=== PATIENT | female | born 1935 | race Caucasian/White ===

== ENCOUNTER 2016-08-10 10:24 | Outpatient (RCR) ==
[2016-01-15 21:51] VITALS: BMI 30.6
--- NOTE | 2016-08-10 11:20 | RS.OPPTDN ---
Subjective Date of Note: 08/10/16 Visit #: 7 Date of Evaluation: 07/22/16 Payer Source: MEDICARE Treatment Diagnosis: Left knee arthroplasty status post Current Subjective/complaints:: Patient says she is trying to work on stairs at home to build L knee strength. Reports colder weather is making her ache and stiff, so she tries to work on HEP as often as possible so that she will be more mobile and strong for Spring. Pain Assessment - Pain Description Pain Location: Left shoulder and lower back Pain Description: throbbing/stiffness Current Pain Intensity: medial L knee Interventions - Exercise/Activities/Manual Therapy Exercises/Activities: Began on stationary bike x 8 mins forward and retro. Patient needed assistance on and off and with altering position of seating often. Performed slowly the first minute due to stiffness in the L knee. Mat exercise QS, heel slides, pillow squeezes, SAQ 3#, DF, hip abd in hooklying performed seperately with (progressed to) green tband, SLR. Alternate hip flexion with 3# to each ankle. Sitting shoulder shrugs, progressed to green theraband scap retraction. Patient stands for hip abd, marching with 1 1/2# ea x 10. Side stepping, foam for heel raises, marching, and weight shift side to side slowly. Rest breaks in between standing and foam activity. Total minutes of Exercise: 45 Manual Therapy: Na HOME EXERCISE PROGRAM: Hooklying hip abd seperately with red tband, QS, and pillow squeezes - Charges Total Direct Minutes: 45 Total Treatment Time: 45 Procedures billed for this date of service:: ex3 Assessment: Patient progressing well with all strengthening for the LE, trunk, and postural. She is maintaining balance with more challenging exercises such as on foam and step board. She is very compliant and maintains positive and motivating attitude to improve. Some difficulty noted with transitioning onto the bike and maneuvering at times due to limited L knee flexion. Patient Education: Education of diagnosis, Body/Joint mechanics, Home Exercise Program, Home Safety, Activity Modification, Education of Plan of Care Patient demonstrates compliance with HEP?: Yes Short Term Goals Goal #1: Patient will present with 4-/5 bilateral hip strength Goal to be met by: 08/06/16 (25%) Progress towards Goal:: Progressing Goal #2: Patient will report compliance with beginning HEP Goal to be met by: 08/06/16 Progress towards Goal:: Met Goal #3: Patient will report 25% increase in confidence with daily mobility. Goal to be met by: 08/06/16 (50%) Progress towards Goal:: Progressing Nursing Home Goals Goal #1: Patient independent in HEP to maintain her strength. Goal to be met by: 09/03/16 Progress towards goal: Progressing Goal #2: Tinetti Balance Score 20/28 Goal to be met by: 09/03/16 Goal #3: Decrease mobility deficit to 20 - 39% Goal to be met by: 09/03/16 Goal #4: Patient will present 50% improvement in gait confidence. Goal to be met by: 09/03/16 Progress towards goal: Progressing Plan PLAN OF CARE EXPIRES ON:: 09/03/16 ORDER # VISITS AND/OR THROUGH DATE: 09/03/2015 PLAN: Progress Exercises
--- NOTE | 2016-08-12 10:04 | RS.CXNS ---
Date of scheduled appointment: 08/12/16 Type: Cancel Reason for Cancel/NS: inclement weather
--- NOTE | 2016-08-17 11:24 | RS.CXNS ---
Date of scheduled appointment: 08/17/16 Type: Schedule Mistake Reason for Cancel/NS: Called patient and she reported being sick and in bed. Will call us to reschedule.
--- NOTE | 2016-08-19 11:16 | RS.CXNS ---
Date of scheduled appointment: 08/19/16 Type: Cancel Reason for Cancel/NS: Patient calls to cancel as she is doing well and is returning to her chair aerobics/social exercising groups. Will plan to discharge.
--- NOTE | 2016-08-31 11:39 | RS.OPPTDC ---
Date of Discharge: 08/31/16 Date of Evaluation: 07/22/16 Number of Visits: 7 Treatment Diagnosis: Gait abnormality Current Complaints/Gains: Patient reports improved balance and strength in LE' s. She is performing HEP at home often. She also performs chair aerobics 3-4 times a week. Pain Assessment - Pain Description Pain Location: Left shoulder and lower back Pain Description: throbbing/stiffness Current Pain Intensity: medial L knee Functional Outcome Measure Tinetti: 16 (=43% impairment) - G Codes & Severity Modifier G Codes & Modifier: Mobility D/C CK. Mobility goal CJ Source of G Code score: Tinetti assessment (determined by observation at last attended date of service.) Gait - Gait Pattern Gait Comments: Patient ambulates with straight cane, independently. She demonstrates minimal deviation from a straight path. Interventions - Exercise/Activities/Manual Therapy Exercises/Activities: NA Manual Therapy: Na HOME EXERCISE PROGRAM: Hooklying hip abd seperately with red tband, QS, and pillow squeezes - Objective Findings Observations,measurements,etc.: patient able to perform all LE exercises in standing and mat for strengtheing and balance while maintaining balance. She continues to ambulate with a straight cane. - Charges Total Direct Minutes: NA Total Treatment Time: NA Procedures billed for this date of service:: NA Assessment Assessment: Patient reports improved strength and balance with therapy. She is active with a chair aerobics class and feels she can continue her HEP from therapy on her own. Short Term Goals Goal #1: Patient will present with 4-/5 bilateral hip strength Goal to be met by: 08/06/16 (25%) Progress towards Goal:: Partially Met Goal #2: Patient will report compliance with beginning HEP Goal to be met by: 08/06/16 Progress towards Goal:: Met Goal #3: Patient will report 25% increase in confidence with daily mobility. Goal to be met by: 08/06/16 (50%) Progress towards Goal:: Met [facility] Goals Goal #1: Patient independent in HEP to maintain her strength. Goal to be met by: 09/03/16 Progress towards goal: Met Goal #2: Tinetti Balance Score 20 Goal to be met by: 09/03/16 Progress towards goal: Not Met Goal #3: Decrease mobility deficit to 20 - 39% Goal to be met by: 09/03/16 Progress towards goal: Not Met Goal #4: Patient will present 50% improvement in gait confidence. Goal to be met by: 09/03/16 Progress towards goal: Met Plan Reason for Discharge:: Self-Discharge
== END 2016-09-07 ==
PROVIDERS: ATTEND Internal Medicine
DX: R26.89 Other abnormalities of gait and mobility (principal); M15.9 Polyosteoarthritis, unspecified; Z96.653 Presence of artificial knee joint, bilateral

== ENCOUNTER 2017-03-31 11:42 | Inpatient (IN) ==
[2017-03-31] MEDS ORDERED: TYLENOL PO PRN (12:17)
[2017-03-31] MEDS ORDERED: MORPHINE 4 MG/ML SYRINGE IVP PRN (12:17)
[2017-03-31] MEDS ORDERED: NITROSTAT SL PRN (12:17)
[2017-03-31] MEDS ORDERED: ATROPINE SULFATE PFS IVP PRN (12:17)
[2017-03-31] MEDS ORDERED: VISTARIL INJ IM PRN (12:17)
[2017-03-31 12:24] VITALS: BMI 31.1
[2017-03-31] MEDS ORDERED: NORCO 10-325 PO PRN ×2 (12:24→12:50)
[2017-03-31 13:10] LABS: BASOPHILS % (AUTO) 0.6 % (0.0-3.0); EOSINOPHILS # (AUTO) 0.2 K/ul (0.0-0.7); EOSINOPHILS % (AUTO) 4.2 % (0.0-7.0); HEMATOCRIT 32.1 % (37.0-47.0); HEMOGLOBIN 11.4 g/dl (12.0-16.0); IMMATURE GRANULOCYTE % (AUTO) 0.2 % (0.0-5.0); LYMPHOCYTES # (AUTO) 0.7 K/uL (0.60-3.4); LYMPHOCYTES % (AUTO) 14.7 (10.0-50.0); MEAN CORPUSCULAR HEMOGLOBIN 32.8 pg (27.0-31.0); MEAN CORPUSCULAR HGB CONC 35.5 (31.8-35.4); MEAN CORPUSCULAR VOLUME 92.2 fl (81.0-99.0); MONOCYTES # (AUTO) 0.4 K/uL (0.4-2.0); MONOCYTES % (AUTO) 7.4 (0-10); NEUTROPHILS # (AUTO) 3.7 K/ul (2.0-6.9); NEUTROPHILS % (AUTO) 72.9; PLATELET COUNT 247 10^3/uL (140-440); RED BLOOD COUNT 3.48 10^6/ul (4.20-5.40); WHITE BLOOD COUNT 5.02 K/ul (4.6-10.2)
[2017-03-31] MEDS: ROCEPHIN 1 GM in SODIUM CHLORIDE 50 ML IV SCH (13:28)
[2017-03-31] MEDS: DEXTROSE 5%-1/2NS IV SOLUTION 1,000 ML IV SCH (13:28)
[2017-03-31] MEDS: TUSSIONEX PO SCH ×2 (13:28→20:18)
[2017-03-31] MEDS: SOLU-CORTEF 250 MG IVP SCH ×2 (13:29→20:18)
[2017-03-31 13:49] LABS: ALBUMIN 3.6 g/dL (3.4-5.0); ALBUMIN/GLOBULIN RATIO 1.24; ANION GAP 12.6; BILIRUBIN,TOTAL 0.55 mg/dL (0.00-1.20); BUN/CREATININE RATIO 11.26; CALCIUM 9.4 mg/dL (8.2-10.2); CREATININE 0.71 mg/dL (0.60-1.30); POTASSIUM 3.6 mmol/L (3.5-5.10); TOTAL PROTEIN 6.5 g/dL (5.8-8.1); TROPONIN I 0.017 ng/ml (0.0000-0.4000)
[2017-03-31] MEDS ORDERED: ALBUTEROL 0.083% NEB NEB SCH (14:00)
[2017-03-31 15:43] LABS: BILIRUBIN,URINE Negative (NEGATIVE); KETONES,URINE Negative (NEGATIVE); LEUKOCYTE ESTERASE ,URINE Negative (NEGATIVE); NITRITE,URINE Negative (NEGATIVE); PROTEIN,URINE Negative (NEGATIVE); URINE, BLOOD Trace-intact (NEGATIVE)
[2017-03-31] MEDS: ZITHROMAX 500 MG in SODIUM CHLORIDE 250 ML IV SCH (15:46)
[2017-03-31 15:49] LABS: ADD URINE MICROSCOPIC YES
--- NOTE | 2017-03-31 15:49 | DI ---
EXAM: CHEST FRONTAL AND LATERAL VIEWS HISTORY: Bronchitis. COMPARISON: None FINDINGS: Normal heart size. Moderate atherosclerotic disease. Mild hyperinflation. Diffuse process improvement consultant abhi-appearing interstitial changes with no acute infiltrates or consolidation. There is no vascular congestion, central interstitial edema, pneumothorax or pleural fluid. Right shoulder prosthesis. IMPRESSION: No acute cardiopulmonary process.
[2017-03-31] MEDS ORDERED: ALBUTEROL 0.083% NEB NEB PRN (16:43)
[2017-03-31] MEDS ORDERED: TUSSIONEX ONE (20:14)
[2017-03-31] MEDS: ALBUTEROL 0.083% NEB NEB SCH (20:17)
[2017-03-31 20:50] LABS: CREATINE KINASE 95 U/L; MYOGLOBIN 34 ng/ml
[2017-04-01] MEDS: DEXTROSE 5%-1/2NS IV SOLUTION 1,000 ML IV SCH (04:34)
[2017-04-01 04:58] LABS: BASOPHILS % (AUTO) 0.2 % (0.0-3.0); EOSINOPHILS % (AUTO) 0.2 % (0.0-7.0); HEMATOCRIT 30.2 % (37.0-47.0); HEMOGLOBIN 10.5 g/dl (12.0-16.0); IMMATURE GRANULOCYTE % (AUTO) 0.5 % (0.0-5.0); LYMPHOCYTES # (AUTO) 0.4 K/uL (0.60-3.4); LYMPHOCYTES % (AUTO) 6.5 (10.0-50.0); MEAN CORPUSCULAR HEMOGLOBIN 31.7 pg (27.0-31.0); MEAN CORPUSCULAR HGB CONC 34.8 (31.8-35.4); MEAN CORPUSCULAR VOLUME 91.2 fl (81.0-99.0); MONOCYTES # (AUTO) 0.2 K/uL (0.4-2.0); MONOCYTES % (AUTO) 2.6 (0-10); NEUTROPHILS # (AUTO) 5.3 K/ul (2.0-6.9); PLATELET COUNT 238 10^3/uL (140-440); RED BLOOD COUNT 3.31 10^6/ul (4.20-5.40); WHITE BLOOD COUNT 5.85 K/ul (4.6-10.2)
[2017-04-01 05:17] LABS: ALANINE AMINOTRANSFERASE < 6 U/L (12-78); ALBUMIN/GLOBULIN RATIO 1.11; ALKALINE PHOSPHATASE 57 U/L (53-141); ANION GAP 15.2; ASPARTATE AMINO TRANSFERASE 11 U/L (15-37); BLOOD UREA NITROGEN 10 mg/dL (7-18); BUN/CREATININE RATIO 14.92; CALCIUM 8.9 mg/dL (8.2-10.2); CARBON DIOXIDE 26 mmol/L (23-31); CHLORIDE 96 mmol/L (98-107); CREATININE 0.67 mg/dL (0.60-1.30); GLUCOSE 143 mg/dL (82-115); POTASSIUM 3.2 mmol/L (3.5-5.10); SODIUM 134 mmol/L (136-145); TOTAL PROTEIN 5.7 g/dL (5.8-8.1)
[2017-04-01] MEDS: ALBUTEROL 0.083% NEB NEB SCH ×4 (05:26→20:19)
[2017-04-01] MEDS: SOLU-CORTEF 250 MG IVP SCH ×3 (05:42→20:21)
[2017-04-01] MEDS: PRILOSEC PO SCH (05:42)
[2017-04-01] MEDS ORDERED: K-DUR PO STA (08:30)
[2017-04-01] MEDS ORDERED: DEXTROSE 5%-1/2NS IV SOLUTION 1,000 ML IV SCH (08:30)
[2017-04-01] MEDS ORDERED: [UNRECOGNIZED DRUG - OTHER] PO SCH (09:00)
[2017-04-01] MEDS ORDERED: CALCIUM CITRATE PO SCH (09:00)
[2017-04-01] MEDS ORDERED: VITAMIN D2 PO SCH (09:00)
[2017-04-01] MEDS ORDERED: NON-FORMULARY MEDICATION (Losartan/Hydrochlorothiazide [Losartan-Hctz 100-25 Mg Tab] 1 EAC PO SCH (09:00)
[2017-04-01] MEDS: CALCIUM 500 + VIT D 200 MG TABLET PO SCH (09:13)
[2017-04-01] MEDS: HYDROCHLOROTHIAZIDE PO SCH (09:13)
[2017-04-01] MEDS: COZAAR PO SCH (09:13)
[2017-04-01] MEDS: ZITHROMAX 500 MG in SODIUM CHLORIDE 250 ML IV SCH (09:14)
[2017-04-01] MEDS: ROCEPHIN 1 GM in SODIUM CHLORIDE 50 ML IV SCH (09:14)
[2017-04-01] MEDS: TUSSIONEX PO SCH ×2 (09:15→20:21)
[2017-04-01] MEDS: PRAVACHOL PO SCH (09:20)
--- NOTE | 2017-04-01 11:12 | PCM.PROG ---
Attending Provider: ATTENDING PROVIDER: Dr. DEVAUGHN SAM DATE OF SERVICE: 04/01/17 SUBJECTIVE: This 81 year old WHITE/ F was hospitalized 03/31/17. The patient is seen with Katiana, Nurse Practitioner. The patient is alert, lying in bed. She feels better. REVIEW OF SYSTEMS: CONSTITUTIONAL: Weakness. No night sweats. No fever or chills. HEENT: Eyes: No visual changes. No eye pain. No eye discharge. ENT: No runny nose. No epistaxis. No sinus pain. No odynophagia. No congestion. RESPIRATORY: Cough and congestion. No hemoptysis. No shortness of breath. CARDIOVASCULAR: No angina symptoms. No CHF symptoms. No atypical chest pain for CAD. No palpitations. No orthopnea.. GASTROINTESTINAL: No abdominal pain. No nausea or vomiting. No diarrhea or constipation. No hematemesis. No hematochezia. GENITOURINARY: No urgency. No frequency. No dysuria. No hematuria. No obstructive symptoms. No discharge. No pain. No significant abnormal bleeding. MUSCULOSKELETAL: No musculoskeletal pain; no joint swelling. NEUROLOGICAL: Awake, alert, oriented to time, place and person. No headache. No neck pain. No syncope. No seizures. No dizziness. PSYCHIATRIC: Not anxious. No depression. No suicidal thoughts. No homicidal thoughts. SKIN: No rash. No lesions. No wounds. ENDOCRINE: No unexplained weight loss. No weight gain. HEMATOLOGIC/LYMPHATIC: No anemia. No purpura. No petechiae. No prolonged or excessive bleeding. No palpable lymph nodes. PHYSICAL EXAMINATION: GENERAL: The patient is awake, alert and oriented, lying in bed in no distress. VITAL SIGNS: Temperature 97.5 F, Pulse 56, Respiratory Rate 14, BP 113/71, Pulse Ox 95% HEENT: Head normocephalic, atraumatic. Eyes: Extraocular muscles are intact. Pupils are equal, round and reactive to light and accommodation. Ears: No lesions. Nose appeared normal. Throat: No exudate or erythema. NECK: Supple. No JVD, no carotid bruit. No lymphadenopathy or thyromegaly. LUNGS: Diminished breath sounds bialterally. Faint rhonchi. No wheeze. Percussion note normal. Chest symmetrical. HEART: S1, S2, no S3. No murmurs. No cyanosis or clubbing. No ascites. Pulses: Dorsalis pedis and posterior tibial pulses +1 to +2 both sides. ABDOMEN: Soft. Non-tender. Bowel sounds active. No CVA tenderness. No mass felt. EXTREMITIES: No edema. Full range of motion of all extremities, equal. NEUROLOGIC: No focal deficit. Cranial nerves II through XII are grossly intact. No headache, no double vision or headache. SKIN: Not dry. Intact. Turgor-normal. LYMPHATIC: No palpable lymph nodes/no lymphedema. MUSCULOSKELETAL: Normal joints with no swelling. Muscle tone is normal. LAB REVIEW: 04/01/17 04:30 04/01/17 04:30 04/01/17 04:30: WBC 5.85, RBC 3.31 L, Hgb 10.5 L, Hct 30.2 L, MCV 91.2, MCH 31.7 H, MCHC 34.8, RDW Coeff of Emily 13.2, Plt Count 238, Immature Gran % (Auto) 0.5, Neut % (Auto) 90.0, Lymph % (Auto) 6.5 L, [place]high % (Auto) 2.6, Eos % (Auto) 0.2, Baso % (Auto) 0.2, Immature Gran # (Auto) 0.0, Neut # 5.3, Lymph # 0.4 L, [place]high # 0.2 L, Eos # 0.0, Baso # 0.0, Sodium 134 L, Potassium 3.2 L, Chloride 96 L, Carbon Dioxide 26, Anion Gap 15.2, BUN 10, Creatinine 0.67, Estimated GFR ( MDRD) 85.00, BUN/Creatinine Ratio 14.92, Glucose 143 H, Calcium 8.9, Total Bilirubin 0.30, AST 11 L, ALT < 6 L, Alkaline Phosphatase 57, Total Protein 5.7 L, Albumin 3.0 L, Globulin 2.7, Albumin/Globulin Ratio 1.11 03/31/17 20:13: Total Creatine Kinase 95, Myoglobin 34, Troponin I < 0.0100 03/31/17 15:00: Urine Color Yellow, Urine Clarity Clear, Urine pH 7.0, Ur Specific Reeves 1.015, Urine Protein Negative, Urine Glucose (UA) Negative, Urine Ketones Negative, Urine Blood Trace-intact, Urine Nitrite Negative, Urine Bilirubin Negative, Urine Urobilinogen 0.2, Ur Leukocyte Esterase Negative, Urine Microscopic RBC 2-5, Ur Squamous Epith Cells 2-5 03/31/17 12:40: WBC 5.02, RBC 3.48 L, Hgb 11.4 L, Hct 32.1 L, MCV 92.2, MCH 32.8 H, MCHC 35.5 H, RDW Coeff of Emily 13.6, Plt Count 247, Immature Gran % (Auto ) 0.2, Neut % (Auto) 72.9, Lymph % (Auto) 14.7, Lehigh % (Auto) 7.4, Eos % (Auto) 4.2, Baso % (Auto) 0.6, Immature Gran # (Auto) 0.0, Neut # 3.7, Lymph # 0.7, Lehigh # 0.4, Eos # 0.2, Baso # 0.0, Sodium 132 L, Potassium 3.6, Chloride 95 L, Carbon Dioxide 28, Anion Gap 12.6, BUN 8, Creatinine 0.71, Estimated GFR (MDRD) 79.00, BUN/Creatinine Ratio 11.26, Glucose 95, Calcium 9.4, Total Bilirubin 0.55 , AST 17, ALT 7 L, Alkaline Phosphatase 69, Total Creatine Kinase 102, Myoglobin 57, Troponin I 0.0170, B-Natriuretic Peptide 112 H, Total Protein 6.5 , Albumin 3.6, Globulin 2.9, Albumin/Globulin Ratio 1.24, TSH 0.900, Free T4 1.08 ASSESSMENT: 1. Acute bronchitis 2. Hypokalemia 3. Hyponatremia PLAN: 1. Dec IV fluids to 40 mL/hr 2. Give 40 mEq potassium p.o. 3. Continue nebs and IV antibiotics Plan and coordination of the patient's care discussed in the presence of Rough And Trueing Machine Operator and nurse. CONDITION: Stable SCRIBED BY: Gris REYESist scribed while in presence of service performed by Dr. DEVAUGHN SAM/KATIANA CORDERO APRN on 04/01/17 ([id number])
[2017-04-01] MEDS: COLACE PO PRN (20:26)
[2017-04-02 04:47] LABS: BASOPHILS % (AUTO) 0.1 % (0.0-3.0); HEMOGLOBIN 10.5 g/dl (12.0-16.0); IMMATURE GRANULOCYTE % (AUTO) 0.9 % (0.0-5.0); LYMPHOCYTES # (AUTO) 0.5 K/uL (0.60-3.4); LYMPHOCYTES % (AUTO) 7.1 (10.0-50.0); MEAN CORPUSCULAR HEMOGLOBIN 32.2 pg (27.0-31.0); MONOCYTES # (AUTO) 0.3 K/uL (0.4-2.0); MONOCYTES % (AUTO) 3.9 (0-10); NEUTROPHILS # (AUTO) 6.1 K/ul (2.0-6.9); PLATELET COUNT 250 10^3/uL (140-440); RED BLOOD COUNT 3.26 10^6/ul (4.20-5.40); WHITE BLOOD COUNT 6.94 K/ul (4.6-10.2)
[2017-04-02 05:10] LABS: ALBUMIN 3.2 g/dL (3.4-5.0); ALBUMIN/GLOBULIN RATIO 1.19; ANION GAP 16.1; BILIRUBIN,TOTAL 0.23 mg/dL (0.00-1.20); BUN/CREATININE RATIO 15.38; CREATININE 0.65 mg/dL (0.60-1.30); POTASSIUM 3.1 mmol/L (3.5-5.10); TOTAL PROTEIN 5.9 g/dL (5.8-8.1)
[2017-04-02] MEDS: ALBUTEROL 0.083% NEB NEB SCH ×4 (05:26→19:04)
[2017-04-02] MEDS: SOLU-CORTEF 250 MG IVP SCH ×3 (05:35→21:24)
[2017-04-02] MEDS: PRILOSEC PO SCH (05:35)
[2017-04-02] MEDS: ROCEPHIN 1 GM in SODIUM CHLORIDE 50 ML IV SCH (08:38)
[2017-04-02] MEDS: PRAVACHOL PO SCH (08:41)
[2017-04-02] MEDS: CALCIUM 500 + VIT D 200 MG TABLET PO SCH (08:41)
[2017-04-02] MEDS: HYDROCHLOROTHIAZIDE PO SCH (08:42)
[2017-04-02] MEDS: COZAAR PO SCH (08:42)
[2017-04-02] MEDS: TUSSIONEX PO SCH ×2 (08:50→21:31)
[2017-04-02] MEDS: ZITHROMAX 500 MG in SODIUM CHLORIDE 250 ML IV SCH (09:47)
[2017-04-02] MEDS: K-DUR PO SCH ×3 (09:57→21:31)
[2017-04-02] MEDS: COLACE PO PRN (21:33)
[2017-04-03 04:55] LABS: BASOPHILS % (AUTO) 0.1 % (0.0-3.0); HEMATOCRIT 30.3 % (37.0-47.0); HEMOGLOBIN 10.7 g/dl (12.0-16.0); IMMATURE GRANULOCYTE % (AUTO) 0.9 % (0.0-5.0); LYMPHOCYTES # (AUTO) 0.8 K/uL (0.60-3.4); LYMPHOCYTES % (AUTO) 10.2 (10.0-50.0); MEAN CORPUSCULAR HEMOGLOBIN 33.6 pg (27.0-31.0); MEAN CORPUSCULAR HGB CONC 35.3 (31.8-35.4); MEAN CORPUSCULAR VOLUME 95.3 fl (81.0-99.0); MONOCYTES # (AUTO) 0.4 K/uL (0.4-2.0); MONOCYTES % (AUTO) 5.6 (0-10); NEUTROPHILS # (AUTO) 6.2 K/ul (2.0-6.9); NEUTROPHILS % (AUTO) 83.2; PLATELET COUNT 270 10^3/uL (140-440); RED BLOOD COUNT 3.18 10^6/ul (4.20-5.40); WHITE BLOOD COUNT 7.48 K/ul (4.6-10.2)
[2017-04-03] MEDS: ALBUTEROL 0.083% NEB NEB SCH ×2 (05:11→09:35)
[2017-04-03 05:16] LABS: ALBUMIN 3.3 g/dL (3.4-5.0); ALBUMIN/GLOBULIN RATIO 1.18; ANION GAP 16.5; BILIRUBIN,TOTAL 0.23 mg/dL (0.00-1.20); BUN/CREATININE RATIO 17.14; CREATININE 0.7 mg/dL (0.60-1.30); POTASSIUM 3.5 mmol/L (3.5-5.10); TOTAL PROTEIN 6.1 g/dL (5.8-8.1)
[2017-04-03] MEDS: SOLU-CORTEF 250 MG IVP SCH (05:40)
[2017-04-03] MEDS: PRILOSEC PO SCH (07:01)
[2017-04-03] MEDS: ROCEPHIN 1 GM in SODIUM CHLORIDE 50 ML IV SCH (08:43)
[2017-04-03] MEDS: HYDROCHLOROTHIAZIDE PO SCH (08:49)
[2017-04-03] MEDS: CALCIUM 500 + VIT D 200 MG TABLET PO SCH (08:49)
[2017-04-03] MEDS: TUSSIONEX PO SCH (08:49)
[2017-04-03] MEDS: K-DUR PO SCH (08:50)
[2017-04-03] MEDS: COZAAR PO SCH (08:50)
[2017-04-03] MEDS: PRAVACHOL PO SCH (08:50)
[2017-04-03 11:01] VITALS: BP 143/67; TEMP 97.8
--- NOTE | 2017-04-07 12:30 | PN ---
DATE OF SERVICE: 04/01/17 SUBJECTIVE: Evonne Harris was hospitalized yesterday with dehydration and acute bronchitis, which the patient is feeling a lot better. The patient's appetite has improved. She is eating well. REVIEW OF SYSTEMS: CONSTITUTIONAL: No night sweats. No fatigue, malaise, lethargy. No fever or chills. HEENT: Eyes: No visual changes. No eye pain. No eye discharge. ENT: No runny nose. No epistaxis. No sinus pain. No sore throat. No odynophagia. No congestion. RESPIRATORY: No cough, no congestion. No hemoptysis. No shortness of breath. CARDIOVASCULAR: No angina symptoms. No CHF symptoms. No atypical chest pain for CAD. No palpitations. No orthopnea. GASTROINTESTINAL: No abdominal pain. No nausea or vomiting. No diarrhea or constipation. No hematemesis. No hematochezia. GENITOURINARY: No urgency. No frequency. No dysuria. No hematuria. No obstructive symptoms. No discharge. No pain. No significant abnormal bleeding. MUSCULOSKELETAL: No musculoskeletal pain; no joint swelling. NEUROLOGICAL: No headache. No neck pain. No syncope. No seizures. No dizziness. PSYCHIATRIC: Not anxious. No depression. No suicidal thoughts. No homicidal thoughts. SKIN: No rash. No lesions. No wounds. ENDOCRINE: No unexplained weight loss. No weight gain. HEMATOLOGIC/LYMPHATIC: No anemia. No purpura. No petechiae. No prolonged or excessive bleeding. No palpable lymph nodes. PHYSICAL EXAMINATION: GENERAL: The patient is oriented to time, place and person. HEENT: Head normocephalic, atraumatic. Eyes: Extraocular muscles are intact. Pupils are equal, round and reactive to light and accommodation. Ears: No lesions. Nose appeared normal. Throat: No exudate or erythema. NECK: Supple. No JVD, no carotid bruit. No lymphadenopathy or thyromegaly. LUNGS: Decreased breath sounds, but clear. Percussion note normal. Chest symmetrical. HEART: S1, S2, no S3. No murmurs. No cyanosis or clubbing. No ascites. Pulses: Dorsalis pedis and posterior tibial pulses +1 to +2 both sides. ABDOMEN: Soft. Nontender. Bowel sounds active. No CVA tenderness. No mass felt. EXTREMITIES: No edema. Full range of motion of all extremities, equal. NEUROLOGIC: No focal deficit. Cranial nerves II through XII are grossly intact. No headache, no double vision or headache. SKIN: Not dry. Intact. Turgor - normal. LYMPHATIC: No palpable lymph nodes/no lymphedema. MUSCULOSKELETAL: Normal joints with no swelling. Muscle tone is normal. ASSESSMENT: 1. ACUTE BRONCHITIS AND DEHYDRATION, SEEMS TO BE RESOLVING. THE PATIENT HAS IMPROVED REMARKABLY WITH STEROIDS AND IV ANTIBIOTICS AND NEBS TREATMENT. CONDITION: Stable. The patient was seen and examined with the nurse practitioner and caser shoe parts. TIME SPENT: More than 30 minutes. Plan and coordination of the patient's care discussed in the presence of nurse. SHEELA
--- NOTE | 2017-04-07 12:36 | PN ---
DATE OF SERVICE: 04/02/17 SUBJECTIVE: 81 year old white female hospitalized with acute bronchitis and dehydration. The patient's condition has steadily improved. She is feeling a lot better. REVIEW OF SYSTEMS: CONSTITUTIONAL: No night sweats. No fatigue, malaise, lethargy. No fever or chills. HEENT: Eyes: No visual changes. No eye pain. No eye discharge. ENT: No runny nose. No epistaxis. No sinus pain. No sore throat. No odynophagia. No congestion. RESPIRATORY: No cough, no congestion. No hemoptysis. No shortness of breath. CARDIOVASCULAR: No angina symptoms. No CHF symptoms. No atypical chest pain for CAD. No palpitations. No orthopnea. GASTROINTESTINAL: No abdominal pain. No nausea or vomiting. No diarrhea or constipation. No hematemesis. No hematochezia. GENITOURINARY: No urgency. No frequency. No dysuria. No hematuria. No obstructive symptoms. No discharge. No pain. No significant abnormal bleeding. MUSCULOSKELETAL: No musculoskeletal pain; no joint swelling. NEUROLOGICAL: No headache. No neck pain. No syncope. No seizures. No dizziness. PSYCHIATRIC: Not anxious. No depression. No suicidal thoughts. No homicidal thoughts. SKIN: No rash. No lesions. No wounds. ENDOCRINE: No unexplained weight loss. No weight gain. HEMATOLOGIC/LYMPHATIC: No anemia. No purpura. No petechiae. No prolonged or excessive bleeding. No palpable lymph nodes. PHYSICAL EXAMINATION: GENERAL: The patient is oriented to time, place and person. VITAL SIGNS: Temperature 97.3, pulse 60, respiratory rate 14, blood pressure 130/70, pulse ox 98%. HEENT: Head normocephalic, atraumatic. Eyes: Extraocular muscles are intact. Pupils are equal, round and reactive to light and accommodation. Ears: No lesions. Nose appeared normal. Throat: No exudate or erythema. NECK: Supple. No JVD, no carotid bruit. No lymphadenopathy or thyromegaly. LUNGS: Decreased breath sounds, but clear. Percussion note normal. Chest symmetrical. HEART: S1, S2, no S3. No murmurs. No cyanosis or clubbing. No ascites. Pulses: Dorsalis pedis and posterior tibial pulses +1 to +2 both sides. ABDOMEN: Soft. Nontender. Bowel sounds active. No CVA tenderness. No mass felt. EXTREMITIES: No edema. Full range of motion of all extremities, equal. NEUROLOGIC: No focal deficit. Cranial nerves II through XII are grossly intact. No headache, no double vision or headache. SKIN: Not dry. Intact. Turgor - normal. LYMPHATIC: No palpable lymph nodes/no lymphedema. MUSCULOSKELETAL: Normal joints with no swelling. Muscle tone is normal. LABS: Hemoglobin 10.5, hematocrit 30, WBC 6,900 with normal differential. Creatinine 0.6, BUN 10, potassium 3.1. ASSESSMENT: 1. ACUTE BRONCHITIS 2. DEHYDRATION PLAN: 1. Will give her K-Tab 20 mEq three times a day. 2. Discontinue IV fluids. 3. Up and about. 4. Continue antibiotics, steroids and NEBS treatments. CONDITION: Stable. TIME SPENT: More than 30 minutes. Plan and coordination of the patient's care discussed in the presence of nurse. SHEELA
--- NOTE | 2017-04-07 12:44 | PN ---
DATE OF SERVICE: 04/03/17 SUBJECTIVE: 81 year old white female was hospitalized with acute bronchitis, dehydration, pneumonitis and also pleuritic pain. The patient's condition has improved remarkably. She wants to go home. REVIEW OF SYSTEMS: CONSTITUTIONAL: No night sweats. No fatigue, malaise, lethargy. No fever or chills. HEENT: Eyes: No visual changes. No eye pain. No eye discharge. ENT: No runny nose. No epistaxis. No sinus pain. No sore throat. No odynophagia. No congestion. RESPIRATORY: No cough, no congestion. No hemoptysis. No shortness of breath. CARDIOVASCULAR: No angina symptoms. No CHF symptoms. No atypical chest pain for CAD. No palpitations. No orthopnea. GASTROINTESTINAL: No abdominal pain. No nausea or vomiting. No diarrhea or constipation. No hematemesis. No hematochezia. GENITOURINARY: No urgency. No frequency. No dysuria. No hematuria. No obstructive symptoms. No discharge. No pain. No significant abnormal bleeding. MUSCULOSKELETAL: No musculoskeletal pain; no joint swelling. NEUROLOGICAL: No headache. No neck pain. No syncope. No seizures. No dizziness. PSYCHIATRIC: Not anxious. No depression. No suicidal thoughts. No homicidal thoughts. SKIN: No rash. No lesions. No wounds. ENDOCRINE: No unexplained weight loss. No weight gain. HEMATOLOGIC/LYMPHATIC: No anemia. No purpura. No petechiae. No prolonged or excessive bleeding. No palpable lymph nodes. PHYSICAL EXAMINATION: GENERAL: The patient is oriented to time, place and person. VITAL SIGNS: Temperature 97.9, pulse 71, respiratory rate 15 per minutes, blood pressure 158/78, pulse ox 94%. HEENT: Head normocephalic, atraumatic. Eyes: Extraocular muscles are intact. Pupils are equal, round and reactive to light and accommodation. Ears: No lesions. Nose appeared normal. Throat: No exudate or erythema. NECK: Supple. No JVD, no carotid bruit. No lymphadenopathy or thyromegaly. LUNGS: Decreased breath sounds, but clear. Percussion note normal. Chest symmetrical. HEART: S1, S2, no S3. No murmurs. No cyanosis or clubbing. No ascites. Pulses: Dorsalis pedis and posterior tibial pulses +1 to +2 both sides. ABDOMEN: Soft. Nontender. Bowel sounds active. No CVA tenderness. No mass felt. EXTREMITIES: No edema. Full range of motion of all extremities, equal. NEUROLOGIC: No focal deficit. Cranial nerves II through XII are grossly intact. No headache, no double vision or headache. SKIN: Not dry. Intact. Turgor - normal. LYMPHATIC: No palpable lymph nodes/no lymphedema. MUSCULOSKELETAL: Normal joints with no swelling. Muscle tone is normal. LABS: Hemoglobin 10.7, hematocrit 30, WBC 7,400 with normal differential. Creatinine 0.7, BUN 12, potassium 3.5, BNP borderline high on admission. T4 and TSH normal. ASSESSMENT: 1. ACUTE BRONCHITIS 2. PNEUMONITIS 3. PLEURITIC PAIN 4. DEHYDRATION ALL SUBSIDED PLAN: 1. Send the patient home on Keflex and Prednisone. 2. The patient is to see me in four to five days as an outpatient. CONDITION: Stable. TIME SPENT: More than 30 minutes. Plan and coordination of the patient's care discussed in the presence of nurse. SHEELA
--- NOTE | 2017-04-07 13:26 | DS ---
DATE OF SERVICE: 04/03/17 FINAL DIAGNOSIS: 1. Acute bronchitis/pneumonitis 2. Dehydration 3. 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 Anemia 8. Hypertension 9. LVH 10.History of Rheumatic fever 11.History of kidney stones. DISCHARGE INSTRUCTIONS: Discharge the patient home. Followup with Dr. Lala or Tuesday or April 08. Notify MD if you develop fever or worsening cough. MEDICATIONS AT DISCHARGE: Pravachol 20mg PO daily Prilosec 20mg PO QDAC Losartan-HCTZ 100-25mg PO daily Calcium citrate/Vitamin D2 one PO daily Somers 10-325mg PO twice a day NEW PRESCRIPTIONS: Keflex 500mg PO Q 8 hours #30 Prednisone 10mg PO twice a day #10 DIET INSTRUCTIONS: High fiber foods and fluids will help keep your bowels regular. ACTIVITY: Gradually resume activity SMOKING: Former smoker DISEASE SPECIFIC EDUCATION: Medications Followup Antibiotics HOSPITAL COURSE: The patient is a 81 year old white female hospitalized with acute pneumonitis/ bronchitis, dehydration, dizziness and poor appetite. The patient was being treated with IV fluids and her hydration status improved and her kidney functions improved. She was put on Rocephin and Zithromax. She also was given Solu-Cortef 125mg Q 8 hours. On discharge the patient was put on Keflex and Prednisone. Condition at the time of discharge stable. Appetite had improved and kidney function had improved. LABS: Hgb 10.7, hct 30, WBC 7,400 normal differential, creatinine 0.7, BUN 12, potassium 3.5, BNP normal, T4 TSH normal, GFR 81cc per minute. TIME SPENT: More than 60 minutes. [facility]
--- NOTE | 2017-04-07 13:34 | PN ---
03/31/17: Level 5 04/01/17: Intermediate 04/02/17: Intermediate 04/03/17: D as in discharge MTDD
--- NOTE | 2017-04-14 13:43 | HP ---
DATE OF SERVICE: 03/31/17 REASON FOR HOSPITALIZATION/HISTORY OF PRESENT ILLNESS: Coughing since Tuesday- getting worse x5 days. Low grade temperature. Poor appetite x3 days. Dizziness/light headed. Pleuritic type pain with cough right sided. REVIEW OF SYSTEMS: CONSTITUTIONAL: Fever and fatigue. HEENT: Sinus drainage, no sore throat. RESPIRATORY: Cough productive, no congestion. CARDIOVASCULAR: Atypical chest pain for coronary artery disease pleuritic pain. No angina, CHF symptoms, palpitations. Shortness of breath wheezing. GASTROINTESTINAL: No melena or abdominal pain. No GERD. GENITOURINARY: No hematuria, no prostatism, no polyuria. CHECK EXAMINER: No blackout, Dizziness, no headache, no double vision. MUSCULOSKELETAL: No osteoarthritis pain, no joint swelling. ENDOCRINE: No weight loss, no weight gain. SKIN: Dry, no rash. PSYCHIATRIC: Not anxious, no depression, no suicidal thoughts, no homicidal thoughts. SOCIAL HISTORY: Marital Status: . Alcohol Usage: No. Tobacco Usage: No. Family History: Father lung cancer, Sister breast cancer. 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 GENERAL APPEARANCE: Oriented times three. Pallor HEENT: Normal. Nasal congestion yellow drainage. NECK: No JVP, no bruits. RESPIRATORY: Lungs decreased breath sounds with anterior wheezing. Rales right lower lobe. CARDIOVASCULAR: S1, S2, no S3, no murmurs. No cyanosis, clubbing. No ascites. GI/ABDOMEN: Tenderness. Bowel sounds are active. EXTREMITIES: edema, pulses +1, equal. Varicose veins CHECK EXAMINER: Deep tendon reflexes, sensory, motor and gait all normal. RECTAL: 2011 Dr. Shannon/PELVIC: Mammogram 11-16 [facility]. ASSESSMENT: 1. Acute bronchitis/pneumonitis 2. Fever 3. Dehydration 4. 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 Osteoarthritis 6. 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 Anemia 9. Hypertension 10.LVH 11.History of rheumatic fever 12.History of kidney stones. PLAN: 1. Admit regular 2. Diet regular 3. Routine telemetry orders 4. Albuterol Q 4-6 hours scheduled 5. Chest x-ray 6. CBC/CMP daily 7. Sputum culture 8. O2 PRN 9. Blood culture x2 10.1000cc D5 1/2 normal saline 12 hourly 11.Rocephin 1 gram 24 hourly 12.Zithromax 500mg IV today and daily x2 13.Tussionex 1 teaspoon PO now and twice a day PRN 14. Solu-Cortef 125mg IV now and 8 hourly 15. Daily CBC/CMP AM 16. Continue all home medications 17. BNP, T4 TSH TIME SPENT: More than 70 minutes. MTDD
== END 2017-04-03 11:00 | disposition home or self-care (01) | DRG 202 ==
LOC: MEDSURG B 11:42
PROVIDERS: ADMIT Internal Medicine; ATTEND Internal Medicine
DX: J20.9 Acute bronchitis, unspecified (principal); J18.9 Pneumonia, unspecified organism; E87.1 Hypo-osmolality and hyponatremia; E86.0 Dehydration; E87.6 Hypokalemia; R42 Dizziness and giddiness; R63.0 Anorexia; M19.90 Unspecified osteoarthritis, unspecified site; E88.81 Metabolic syndrome and other insulin resistance; D64.9 Anemia, unspecified; I10 Essential (primary) hypertension; I51.7 Cardiomegaly; Z86.79 Personal history of other diseases of the circulatory system; Z87.442 Personal history of urinary calculi; Z79.899 Other long term (current) drug therapy; Z96.652 Presence of left artificial knee joint
CPT/HCPCS: 36415; 80053; 81001; 82550; 83874; 83880; 84439; 84443; 84484; 85025; 87040; 87070; 93005; 93010; 94640; 99223; 99232; 99239

== ENCOUNTER 2017-10-27 12:55 | Outpatient (CLI) ==
[2017-10-27 14:46] VITALS: BMI 30.4
== END 2017-10-27 12:56 | disposition home or self-care (01) ==
LOC: DIETCN 12:55
PROVIDERS: ATTEND Internal Medicine
DX: E78.5 Hyperlipidemia, unspecified (principal)

== ENCOUNTER 2017-12-21 11:40 | Emergency (ER) ==
[2017-12-21 11:45] VITALS: BP 140/81; TEMP 98.8; BMI 30.7
--- NOTE | 2017-12-21 12:01 | ED.PDOC ---
General ED Provider: Dr. ABEL DUKE Chief Complaint: Hand Pain/Injury Stated Complaint: right hand pain Time Seen by Physician: 12:00 (seen with jennifer at all times see photos) Mode of Arrival: Walk-In Information Source: Patient Exam Limitations: No limitations Primary Care Provider: DEVUAGHN SAM Nursing and Triage Documentation Reviewed and Agree: Yes Reviewed sepsis parameters & appropriate labs ordered?: Yes System Inflammatory Response Syndrome: Not Applicable Sepsis Protocol: For patient's 13 years and over: Temp is 96.8 and below OR 101 and greater Pulse >90 BPM Resp >20/minute Acutely Altered Mental Status Are patient's symptoms suggestive of a new infection, such as: -Pneumonia -Skin, Soft Tissue -Endocarditis -UTI -Bone, Joint Infection -Implantable Device -Acute Abdominal Infection -Wound Infection -Meningitis -Blood Stream Catheter Infection -Unknown System Inflammatory Response Syndrome: Not Applicable Musculoskeletal Complaint Exam - Hand/Wrist Complaint/Exam Location of Pain: Reports: Right, Hand, Wrist Mechanism of Injury: Reports: No known trauma Onset/Duration: chronic but increase painx 1 day Symptoms Are: Still present Onset of Pain: Reports: Immediate Initial Severity: Moderate Current Severity: Mild Location: Reports: Discrete Character: Reports: Dull, Aching, Spasmodic, Stiffness Alleviating: Reports: Rest Aggravating: Reports: Movement Associated Signs and Symptoms: Denies: Swelling, Redness, Bruising, Fever, Weakness, Numbness, Tingling Related History: Reports: Similar episode Dominant Hand: Right Related Surgical History: Reports: None Hand/Wrist Findings: Present: Swelling Differential Diagnoses: Closed Fracture, Sprain, Strain Review of Systems - Review Of Systems Constitutional: Reports: No symptoms Eyes: Reports: No symptoms Ears, Nose, Mouth, Throat: Reports: No symptoms Respiratory: Reports: No symptoms Cardiac: Reports: No symptoms GI: Reports: No symptoms : Reports: No symptoms Musculoskeletal: Reports: Joint pain (right hand ) Skin: Reports: No symptoms Neurological: Reports: No symptoms Endocrine: Reports: No symptoms Hematologic/Lymphatic: Reports: No symptoms All Other Systems: Reviewed and Negative Past Medical History - Past Medical History Previously Healthy: Yes Endocrine: Reports: None Cardiovascular: Reports: Hypertension Respiratory: Reports: None Hematological: Reports: None Gastrointestinal: Reports: GERD Genitourinary: Reports: None Neuro/Psych: Reports: None Musculoskeletal: Reports: None Cancer: Reports: None Last Menstrual Period: n/a - Surgical History General Surgical History: Reports: None - Family History Family History: Reports: None - Social History Smoking Status: Former smoker Hx Substance Use: No Alcohol Screening: Occasionally Physical Exam - Physical Exam Appearance: Well-appearing, No pain distress, Well-nourished Eyes: JAQUELINE, EOMI, Conjunctiva clear ENT: Ears normal, Nose normal, Oropharynx normal Respiratory: Airway patent, Breath sounds clear, Breath sounds equal, Respirations nonlabored Cardiovascular: RRR, Pulses normal, No rub, No murmur GI/: Soft, Nontender, No masses, Bowel sounds normal, No Organomegaly Musculoskeletal: Limited ROM (right hand ) Skin: Warm, Dry, Normal color Neurological: Sensation intact, Motor intact, Reflexes intact, Cranial nerves intact, Alert, Oriented Psychiatric: Affect appropriate, Mood appropriate Interpretation - Radiology Interpretation Radiology Interpretation By: Radiologist Radiology Results: No acute changes Critical Care Note - Critical Care Note Total Time (mins): 0 Course - Course Vital Signs: Temp Pulse Resp BP Pulse Ox 12/21/17 11:42 98.8 F 65 16 140/81 94 L Departure - Departure Time of Disposition: 12:00 Disposition: HOME SELF-CARE Discharge Problem: Hand pain Instructions: Arthralgia (ED) Condition: Good Pt referred to PMD for follow-up: Yes IPMP verified?: No Additional Instructions: Please call your Family Physician as soon as possible to schedule a follow-up appointment. Allergies/Adverse Reactions: Allergies adhesive tape Adverse Reaction (Verified 12/21/17 11:46) Rash aspirin Adverse Reaction (Verified 12/21/17 11:46) GI bleed..ulcers Home Medications: Ambulatory Orders Pravastatin Sodium [Pravachol] 20 mg PO DAILY 01/27/14 Losartan/Hydrochlorothiazide [Losartan-Hctz 100-25 mg Tab] 1 each PO DAILY 01/15 Omeprazole [Prilosec] 20 mg PO QDAC 01/16/16 Calcium Citrate/Vitamin D2 [Jamison-Citrate Plus Vitamin D Tab] 1 each PO DAILY Hydrocodone/Acetaminophen [Waban 10-325 Tablet] 1 each PO BID 03/31/17 Tramadol HCl 50 mg PO PRN PRN 12/21/17 Disposition Discussed With: Patient, Family
--- NOTE | 2017-12-21 12:30 | DI ---
EXAM: Radiographs, right hand HISTORY: Right hand pain. COMPARISON: None available. TECHNIQUE: Three views. FINDINGS: Trapezium prosthesis is present. Severe joint space narrowing with subchondral cyst and m arginal osteophyte formation noted throughout the hand and wrist. There are erosions across the thir d and fourth proximal interphalangeal joints. Ankylosis across the first IP joint and the second pro ximal interphalangeal joint. Some interphalangeal joint space narrowing and spurring has a gullwing type appearance. 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 No acute fracture identified. 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
--- NOTE | 2017-12-21 12:30 | DI ---
EXAM: Radiographs, right wrist HISTORY: Right wrist pain. COMPARISON: None available. TECHNIQUE: Three views. FINDINGS: Trapezium prosthesis is present. Severe joint space narrowing with subchondral cyst and m arginal osteophyte formation noted throughout the wrist. 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 No a cute fracture identified. IMPRESSION: Advanced arthritic changes of the right wrist.
== END 2017-12-21 12:53 | disposition home or self-care (01) ==
LOC: ED 11:40
DX: M79.641 Pain in right hand (principal); M25.531 Pain in right wrist
CPT/HCPCS: 99282

== ENCOUNTER 2018-05-29 09:23 | Outpatient (CLI) | payer OTHER ==
--- NOTE | 2018-05-29 10:12 | MAMMO ---
EXAM: Bilateral digital diagnostic mammogram (2-D and 3-D) Comparison: Bilateral mammogram 05/26/2017 History: Left breast tenderness. Findings: MLO and CC views of bilateral breasts demonstrate scattered fibroglandular breast parenchy ma. CAD was reviewed by the radiologist. Tomosynthesis was performed. Stable benign bilateral vasc ular calcifications. There are no dominant masses, no suspicious microcalcifications and no architec tural distortions Impression: Although no mammographic abnormalities are identified to correlate with the left breast tenderness, recommend further evaluation with left breast ultrasound. BIRADS 0
--- NOTE | 2018-05-29 10:28 | US ---
EXAM: Left breast ultrasound. History: Left breast tenderness. Comparison: Bilateral digital diagnostic mammogram 05/29/2018 Technique: Multiple sonographic images through the left breast were obtained. Color duplex Doppler was used to interrogate vascular flow. Findings: A few small benign cysts are seen at 3 o'clock the largest measuring 4 mm. No suspicious ma sses or abnormal fluid collections identified. Impression: Benign left breast cysts. Recommend return to routine screening mammography schedule. BIRADS 2
== END 2018-05-29 09:24 | disposition home or self-care (01) ==
LOC: RAD 09:23
PROVIDERS: ATTEND Internal Medicine
DX: N64.4 Mastodynia (principal); N63.0 Unspecified lump in unspecified breast

== ENCOUNTER 2018-09-22 06:32 | Outpatient (CLI) ==
--- NOTE | 2018-09-25 10:28 | ECHO2D ---
Date of Exam: 09/22/18 Ordering Physician: DR. DEVAUGHN SAM Room #: OP Reason for Echo: HX OF RHEUMATIC FEVER, MURMUR M-Mode Normal Adult Results LV Dimensions Normal Adult Results AoV Opening excursions >1.6 >1.6 LVEDD-base- 3.5-5.8 4.2 Ao root dimensions 2.0-3.7 3.3 LVESD-base- 3.1-4.6 L. Atrium dimensions 1.9-3.8 5.6 Post. Wall thickness 0.8-1.1 1.2 IV septum (thickness) 0.7-1.2 1.4 Post. Wall excursion 0.72-1.3 NORMAL Septal motion NORMAL Systolic motion R. Ventricular cavity 1.5-2.0 NORMAL LVEF 60% 72% Paradoxical septal wall motion NORMAL 2-D : 2-D M Mode Echocardiogram was performed using apical four chamber and left parasternal long and short axis views. Mitral, tricuspid and aortic valves appear to be normal. Contractility of the left ventricle seems to be normal, so is the cavity size. Enlarged Left atrial cavity size. Aortic root appears to be normal. There is no pericardial effusion. There is no thrombus noted in the left ventricular or left aortic cavity. No mitral valve prolapse noted. M-MODE: MV: NORMAL AV: NORMAL TV: NORMAL PV: CHAMBER SIZE: ENLARGED LEFT ATRIAL CAVITY WALL MOTION: NORMAL PERICARDIUM: NORMAL INTERPRETATION: 1. LEFT VENTRICULAR HYPERTROPHY WITH ENLARGED LEFT ATRIAL CAVITY 2. NORMAL LEFT VENTRICULAR CONTRACTILITY 3. NORMAL VALVES MTDD
== END 2018-09-22 06:33 | disposition home or self-care (01) ==
LOC: CAR 06:32
PROVIDERS: ATTEND Internal Medicine
DX: R01.1 Cardiac murmur, unspecified (principal); Z86.79 Personal history of other diseases of the circulatory system